=== PATIENT | female | born 1945 | race Caucasian/White ===

== ENCOUNTER 2016-10-13 02:33 | Emergency (ER) | payer OTHER ==
[~2016-10-13] VITALS: Ht 162.6 cm; Wt 56.8 kg
[~2016-10-13 02:33] MED LIST: ASPI-664 PO; CHOL100062 PO; CYAN100 PO; FAMO20VI5 IV; IRON18TA PO; LANT3I SC; LISI-313 PO; LOVA20TA PO; MAGN250T24 PO; METO-448 PO; NOVO3I SC; PIOG45TA6 PO; ZINC100T PO; ZOF4I IV; [UNRECOGNIZED DRUG - CODE] IV
[2016-10-13 02:47] VITALS: Ht 162.6 cm; Wt 56.8 kg
[2016-10-13] MEDS ORDERED: SOD CHLORIDE 0.9% 1,000 ML IV STA (03:16)
--- NOTE | 2016-10-13 03:30 | ERA ---
ER Documentation Chief Complaint Date/Time DATE: 10/13/16 TIME: 03:24 Chief Complaint GENERALIZED WEAKNESS, FELL EARLIER TODAY HPI This is a 71-year-old female who is here for multiple falls. The patient states that yesterday she had multiple falls thinks that she passed out a few times. Patient does not recall any preceding symptoms but says she repeatedly fainted. She says she had no headache chest pain shortness of breath abdominal pain nausea vomiting diarrhea. The patient says she is diabetic and her sugars are normal yesterday.. The patient states today she had fallen again due to weakness. She said she could not get up off the floor. She had some friends fine come over to help her get up off the floor and she said EMS came to check her out. She said she then decided to come to ER because she feels generalized weakness. No focal neurological complaints no headache no speech or visual change. No chest pain shortness of breath no cough ROS All systems reviewed and are negative except as per history of present illness. Medications Home Meds Active Scripts Heparin Sodium,Porcine (Heparin Sodium) 1,000 Unit/Ml Soln, 4000 UNIT IV .PER PROTOCOL Y for aPTT<47, #1 VIAL Prov:KELLY PARRA MD 06/29/15 Famotidine* (Famotidine* 20 Mg/2 Ml Vial) 10 Mg/Ml Soln, 20 MG IV DAILY, #1 VIAL Prov:KELLY PARRA MD 06/29/15 Ondansetron Hcl* (Zofran*) 2 Mg/Ml Soln, 4 MG IV Q6H Y for NAUSEA AND/OR VOMITING, #1 Prov:KELLY PARRA MD 06/29/15 Metoprolol Tartrate* (Lopressor*) 25 Mg Tab, 25 MG PO BID, #1 TAB Prov:KELLY PARRA MD 06/29/15 Insulin Aspart* (Novolog Insulin Pen*) 100 Unit/Ml Soln, 0 UNIT SC WITH MEALS BEDTIME, #1 Prov:KELLY PARRA MD 06/29/15 Reported Medications Aspirin* (Aspirin* EC) 81 Mg Tablet.dr, 81 MG PO DAILY, TAB 06/28/15 Cyanocobalamin* (Vitamin B12*) 100 Mcg Tab, 100 MCG PO DAILY, TAB 06/28/15 Zinc Gluconate (Zinc Natural) 100 Mg Tablet, 50 MG PO DAILY 06/28/15 Cholecalciferol* (Vitamin D3*) 1,000 Unit Tablet, 1000 UNIT PO DAILY, TAB 06/28/15 Iron (Iron) 18 Mg Tablet, 18 MG PO DAILY 06/28/15 Magnesium (Magnesium) 250 Mg Tablet, 250 MG PO BID, TAB 06/28/15 Insulin Glargine* (Lantus*) 100 Unit/Ml Soln, 23-24 UNIT SC QPM, EA 06/28/15 Lovastatin* (Lovastatin*) 20 Mg Tablet, 20 MG PO HS, TAB 06/28/15 Lisinopril* (Lisinopril*) 5 Mg Tablet, 5 MG PO DAILY, TAB 06/28/15 Pioglitazone Hcl* (Actos*) 45 Mg Tablet, 45 MG PO DAILY, TAB 06/28/15 Allergies Allergies: Coded Allergies: No Known Allergy (Unverified , 06/28/15) PMhx/Soc History of Surgery: Yes () Anesthesia Reaction: No Hx Neurological Disorder: No Hx Respiratory Disorders: No Hx Cardiac Disorders: Yes (HTN, IA) Hx Psychiatric Problems: No Hx Miscellaneous Medical Probl: Yes (DM) Hx Alcohol Use: Yes (OOC) Hx Substance Use: No Hx Tobacco Use: No Smoking Status: Never smoker FmHx Family History: No coronary disease Physical Exam Vitals Vital Signs Date Time Temp Pulse Resp B/P Pulse Ox O2 Delivery O2 Flow Rate FiO2 10/13/16 05:12 99.8 10/13/16 05:05 70 16 126/47 99 Room Air 10/13/16 04:22 73 16 118/45 100 Room Air 10/13/16 02:55 100.1 70 16 143/52 99 Room Air 10/13/16 02:47 100.1 72 15 130/52 100 Physical Exam Const: Well-developed, well-nourished Head: Atraumatic, normocephalic Eyes: Normal Conjunctiva, PERRLA, EOMI, normal sclera, no nystagmus ENT: Normal External Ears, Nose and Mouth, moist mucus membranes. Neck: Full range of motion. No meningismus, no lymphadenopathy. Resp: Clear to auscultation bilaterally, no wheezing, rhonchi, rales Cardio: Regular rate and rhythm, no murmurs, S1 S2 present Abd: Soft, non tender x 4, non distended. Normal bowel sounds, no guarding or rebound, no pulsitile abdominal masses or bruits Skin: pale, No petechiae or rashes, no ecchymosis , no maculopapular rash Back: No midline or flank tenderness Ext: No cyanosis, or edema, FROM x 4, normal inspection, neurovascularly intact x 4 Neur: Awake and alert, STR 5/5 x 4, sensation intact x 4, no focal findings, cerebellum intact Psych: Normal Mood and Affect Result Diagram: 10/13/16 03310/13/16 0330 Results 24 hrs Laboratory Tests Test 10/13/16 03:30 10/13/16 03:41 Anion Gap 12 Basophils # 0.010^3/ul Basophils % 0.3% Blood Urea Nitrogen 29mg/dl Calcium Level 8.9mg/dl Carbon Dioxide Level 31mmol/L Chloride Level 93mmol/L Creatinine 1.10mg/dl Eosinophils # 0.010^3/ul Eosinophils % 0.0% Glucose Level 300mg/dl Hematocrit 32.4% Hemoglobin 10.6g/dl Lymphocytes # 0.910^3/ul Lymphocytes % 7.7% Mean Corpuscular Hemoglobin 30.7pg Mean Corpuscular Hemoglobin Concent 32.7g/dl Mean Corpuscular Volume 93.9fl Mean Platelet Volume 9.3fl Monocytes # 1.010^3/ul Monocytes % 8.9% Neutrophils # 9.210^3/ul Neutrophils % 82.6% Nucleated Red Blood Cells # 0.010^3/ul Nucleated Red Blood Cells % 0.0/100WBC Platelet Count 43516^3/UL Potassium Level 4.2mmol/L Red Blood Count 3.4510^6/ul Red Cell Distribution Width 14.4% Sodium Level 132mmol/L Troponin I 0.036ng/ml White Blood Count 11.110^3/ul Bedside Glucose 314mg/dL Current Medications Medications (Trade) Dose Ordered Sig/Cindy Route PRN Reason Start Time Stop Time Status Last Admin Dose Admin Sodium Chloride (NS) 1,000 ml @ 1,000 mls/hr Q1H STAT IV 10/13/16 03:16 10/13/16 04:15 DC 10/13/16 03:38 Insulin Human Regular (Humulin R) 4 unit ONCE ONCE SC 10/13/16 05:30 10/13/16 05:31 Procedures/[facility] PROCEDURE: CT Brain without contrast. CLINICAL INDICATION: Syncope TECHNIQUE: Axial images from the skull base through the vertex without IV contrast. Multiplanar reformatted images were made. Images were reviewed on a PACS workstation. The CTDIvol is 39.5 mGy and the DLP is 634.23 mGycm. One or more of the following dose reduction techniques were used: automated exposure control, adjustment of the mA and/or kV according to patient size, or use of iterative reconstruction technique. COMPARISON: None. FINDINGS: Minimal cortical atrophy and probable minimal chronic microvascular ischemic change. No definite evidence for acute territorial infarction or intracranial hemorrhage. No mass or midline shift is seen. No extraaxial fluid collection is seen. The visualized paranasal sinuses and mastoids are clear. IMPRESSION: Minimal atrophy. No definite acute intracranial abnormality. RPTAT: [facility] Physician Elsi Date Time Electronically viewed and signed by Nelida Heart, Physician on 10/13/2016 05 :05 LE/ CC: BETHANIE CRUM DO PROCEDURE: Chest. CLINICAL INDICATION: Chest pain. TECHNIQUE: Single frontal view of the chest was obtained. COMPARISON: 06/28/2015. FINDINGS: The cardiac silhouette is within normal limits. The aortic arch is calcified. There is no focal consolidation, vascular congestion or pleural effusion. There is no pneumothorax. IMPRESSION: No evidence for active cardiopulmonary disease. Aortic atherosclerosis. .Cale Marshall MD, MD Date Time Electronically viewed and signed by .Cale Marshall MD, MD on 10/13/2016 03:49 .T/ CC: BETHANIE CRUM DO EKG: Rate/Rhythm: Atrial fibrillation heart rate 77 QRS, ST, QT: normal QRS, QT] Impression: NORMAL E ATRIAL fibrillation Patient said several fainting spells over the past couple days. She came in with 100.1 temperature. She is currently afebrile. She may have a urinary tract infection she is not able to give us urine after 1 L. She is refusing a straight cath. No focal neurological findings consistent with stroke. Vital signs are stable. Spoke with [place] and will transfer to [facility]. The atrial fibrillation is new onset Departure Diagnosis: Primary Impression: Syncope Qualified Code: R55 - Syncope, unspecified syncope type Additional Impressions: Generalized weakness Atrial fibrillation Qualified Code: I48.91 - Atrial fibrillation, unspecified type Condition: Stable BETHANIE CRUM DO Oct 13, 2016 03:29
--- NOTE | 2016-10-13 03:50 | RADRPT ---
PROCEDURE: Chest. CLINICAL INDICATION: Chest pain. TECHNIQUE: Single frontal view of the chest was obtained. COMPARISON: 06/28/2015. FINDINGS: The cardiac silhouette is within normal limits. The aortic arch is calcified. There is no focal co nsolidation, vascular congestion or pleural effusion. There is no pneumothorax. IMPRESSION: No evidence for active cardiopulmonary disease. Aortic atherosclerosis. .Cale Marshall MD, MD Date Time Electronically viewed and signed by .Cale Marshall MD, on 10/13/2016 03:49 .T/
[2016-10-13 03:57] LABS: ADD SCAN DIFF NO
[2016-10-13 04:00] LABS: BASOPHILS % 0.3 % (0.0-2.0); HEMATOCRIT 32.4 % (37.0-47.0); HEMOGLOBIN 10.6 g/dl (12.0-16.0); LYMPHOCYTES # 0.9 10^3/ul (0.8-2.9); LYMPHOCYTES % 7.7 % (15.0-51.0); MEAN CORPUSCULAR HEMOGLOBIN 30.7 pg (29.0-33.0); MEAN CORPUSCULAR HGB CONC 32.7 g/dl (32.0-37.0); MEAN CORPUSCULAR VOLUME 93.9 fl (82.0-101.0); MEAN PLATELET VOLUME 9.3 fl (7.4-10.4); MONOCYTES % 8.9 % (0.0-11.0); NEUTROPHIL # 9.2 10^3/ul (1.6-7.5); NEUTROPHILS % 82.6 % (39.0-77.0); PLATELET COUNT 185 10^3/UL (140-415); RED BLOOD COUNT 3.45 10^6/ul (4.20-5.40); RED CELL DISTRIBUTION WIDTH 14.4 % (11.5-14.5); WHITE BLOOD COUNT 11.1 10^3/ul (4.8-10.8)
[2016-10-13 04:14] LABS: POTASSIUM 4.2 mmol/L (3.5-5.1)
[2016-10-13 04:16] LABS: CREATININE 1.1 mg/dl (0.44-1.00)
[2016-10-13 04:17] LABS: CALCIUM 8.9 mg/dl (8.4-10.2)
[2016-10-13 04:27] LABS: TROPONIN-I 0.036 ng/ml (0.00-0.12)
--- NOTE | 2016-10-13 05:06 | RADRPT ---
PROCEDURE: CT Brain without contrast. CLINICAL INDICATION: Syncope TECHNIQUE: Axial images from the skull base through the vertex without IV contrast. Multiplanar r eformatted images were made. Images were reviewed on a PACS workstation. The CTDIvol is 39.5 mGy a nd the DLP is 634.23 mGycm. One or more of the following dose reduction techniques were used: autom ated exposure control, adjustment of the mA and/or kV according to patient size, or use of iterative reconstruction technique. COMPARISON: None. FINDINGS: Minimal cortical atrophy and probable minimal chronic microvascular ischemic change. No definite ev idence for acute territorial infarction or intracranial hemorrhage. No mass or midline shift is see n. No extraaxial fluid collection is seen. The visualized paranasal sinuses and mastoids are clear . IMPRESSION: Minimal atrophy. No definite acute intracranial abnormality. RPTAT: [facility] Physician Elsi Date Time Electronically viewed and signed by Nelida Heart Physician on 10/13/2016 05:05 SANIA/
[2016-10-13] MEDS ORDERED: INSULIN REGULAR, HUMAN 100 UNIT/1 ML 3ML VIAL SC ONE (05:30)
[2016-10-13 07:12] LABS: ADD UMIC YES; URINE BILIRUBIN (Dip) NEGATIVE (NEGATIVE); URINE BLOOD (Dip) 2+ (NEGATIVE); URINE COLOR LT. YELLOW (YELLOW); URINE KETONES (Dip) NEGATIVE (NEGATIVE); URINE LEUKOCYTE ESTERASE (Dip) TRACE (NEGATIVE); URINE NITRITE (Dip) NEGATIVE (NEGATIVE); URINE TOTAL PROTEIN (Dip) NEGATIVE (NEGATIVE); URINE UROBILINOGEN (Dip) 0.2 E.U./dL (0.1-1.0)
[2016-10-13 07:27] LABS: BACTERIA,URINE MANY
[2016-10-13 08:54] VITALS: BP 111/42; PULSE 77; RESP 16; TEMP 100.2
== END 2016-10-13 09:05 | disposition short-term general hospital (02) ==
LOC: E/R 02:33
DX: R55 Syncope and collapse (principal); I10 Essential (primary) hypertension; E11.9 Type 2 diabetes mellitus without complications; I48.91 Unspecified atrial fibrillation; Z79.82 Long term (current) use of aspirin; Z79.84 Long term (current) use of oral hypoglycemic drugs; Z79.4 Long term (current) use of insulin
CPT/HCPCS: 36415; 70450; 71010; 80048; 81001; 82962; 84484; 85025; 93005; 96360; 96361; 96372; 99285; J1815; J7030; 81003